=== PATIENT | female | born 1940 | race Caucasian/White ===

== ENCOUNTER → 2020-05-02 | Outpatient (CLI) | payer MEDICARE, OTHER ==
[~2020-05-02] MED LIST: ADULT LOW DOSE81 MG PO; CALCIUM 500 +1 EAC4 PO; ESTRACE0.5 MG PO; HYDROCHLOROTH12.5 MG PO; OMEGA-31000 MG PO; PERFOROMIST; SYMBICORT160 MCG/4. INH; TYLENOL P.M. E1 EAC3 PO; [UNRECOGNIZED DRUG - OTHER] PO
== END ==
LOC: M.LAB 11:45
PROVIDERS: ATTEND Internal Medicine
DX: I48.91 Unspecified atrial fibrillation (principal)

== ENCOUNTER → 2020-05-27 | Outpatient (CLI) | payer MEDICARE, OTHER | LOC: M.LAB 09:11 | PROVIDERS: ATTEND Internal Medicine | DX: I48.91 Unspecified atrial fibrillation (principal) ==